=== PATIENT | male | born 1965 | race Caucasian/White ===

== ENCOUNTER 2021-12-28 18:10 | Inpatient (IN) | payer MEDICARE, MEDICAID, SELFPAY ==
--- NOTE | ~2021-12-28 | XR_ITS ---
EXAMINATION: XR FOOT, RIGHT CLINICAL INFORMATION: Deep ulceration COMPARISON: None TECHNIQUE: AP, lateral, and oblique views of the right foot. FINDINGS: Degenerative changes are present in the foot predominantly involving the interphalangeal joints and the first metatarsal phalangeal joint. Some sclerotic changes are seen in the navicular. No bony destructive lesions are seen. Some soft tissue swelling is seen on the dorsum of the foot overlying the metatarsals. XR/XR foot RT 2V IMPRESSION: No evidence of osteomyelitis. MRI would have increased sensitivity.
--- NOTE | 2021-12-28 18:23 | ED.WOUNDLAC ---
HPI - Wound/Laceration General Chief Complaint: Extremity Injury, Lower Stated Complaint: L FOOT PAIN,? INFECTION PER EMS Time Seen by Provider: 12/28/21 18:22 Source: patient Mode of arrival: ambulatory Limitations: no limitations History of Present Illness HPI narrative: Patient's history of CVA with right sided weakness borderline diabetic and nonhealing ulcers since 08/09 on the lateral aspect of the right foot lately for last few days it has been getting worse with increased pain and the purulent discharge no fever no chills Related Data Allergies Allergy/AdvReac Type Severity Reaction Status Date / Time No Known Allergies Allergy Verified 12/28/21 18:23 Review of Systems Review of Systems: Yes all other systems are reviewed and are negative [facility] Past Medical History Medical History (Updated 12/28/21 @ 22:33 by Randy Torres MD) CVA (cerebral vascular accident) Hypertension Pre-diabetes Right hemiparesis Surgical History (Updated 12/28/21 @ 21:46 by Kanchan Moore MD) History of left-sided carotid endarterectomy Family History Family History (Updated 12/28/21 @ 21:46 by Kanchan Moore MD) Father Colon cancer Social History Social History (Updated 12/28/21 @ 21:47 by Kanchan Moore MD) Alcohol intake: current Patient Tobacco Use Status: Current someday Tobacco user Tobacco use type: Cigarette Use of substances other than those prescribed or required for medical reasons: No Advance Directives: No Advance Directives Information Provided: Yes Physical Exam Vital Signs: Vital Signs: Last Vital Signs Temp 98.5 F 12/28/21 18:42 Pulse 81 12/28/21 18:42 Resp 20 12/28/21 18:42 BP 169/81 H 12/28/21 18:42 Pulse Ox 97 12/28/21 18:42 O2 Del Method 12/28/21 18:42 BMI result Body Mass Index 34.7 Appearance: Alert. Oriented X3. No acute distress. Eyes: PERRLA, No Nystagmus ENT: Pharynx normal. Oral Mucosa moist Neck: Normal inspection. Neck supple. CVS: Normal heart rate and rhythm. Pulses normal. Respiratory: No respiratory distress. Equal air entry bilateral, no wheezing/rales/rhonchi Abdomen: Soft and nontender. Bowel sounds are present, no mass palpable, no CVA tenderness Skin: Skin warm and dry. Normal skin color. Normal skin turgor. Extremities: No lower extremity edema. No calf tenderness right foot lateral aspect 3 x 3 cm ulcer with purulent base with surrounding erythema Neuro: Oriented X 3. Right residual hemiparesis Extrem: Other: MDM - Wound/Laceration MDM Narrative Medical decision making narrative: Patient with nonhealing ulcer right foot without involvement of the bone per x-ray slightly elevated WBC count with normal sed rate, also had LENY patient is unaware of, will admit patient for IV antibiotics unlikely patient has osteomyelitis at this time Lab Data Attestation: I reviewed the patient's lab results. Result diagrams: 12/28/21 18:59 12/28/21 18:59 Labs: Lab Results 12/28/21 12/28/21 12/28/21 Range/Units 18:59 18:59 18:59 WBC 12.2 H (4.8-10.8) X10*3/uL RBC 4.62 (4.60-5.80) X10*6/uL Hgb 13.7 L (14.0-18.0) g/dl Hct 42.2 (42.0-52.0) % MCV 91.3 (80.0-98.0) fL MCH 29.7 (27.0-33.0) pg MCHC 32.5 (31.0-36.0) g/dl RDW 13.5 (11.0-16.0) % Plt Count 236 (160-400) X10*3/uL MPV 9.5 (9.4-12.4) fL Immature Gran % (Auto) 0.4 (0.0-0.4) % Neut % (Auto) 61.6 (45-73) % Lymph % (Auto) 28.9 (20-40) % [place] % (Auto) 4.6 (2-11) % Eos % (Auto) 3.8 (0-4) % Baso % (Auto) 0.7 (0-2) % Lymph # (Auto) 3.5 (1.2-4.9) X10*3/uL [place] # (Auto) 0.6 (0.1-1.2) X10*3/uL Eos # (Auto) 0.5 H (0.0-0.4) X10*3/uL Baso # (Auto) 0.1 (0.0-0.2) X10*3/uL Abs Immat Gran (auto) 0.05 H (0.00-0.03) X10*3/uL Absolute Neuts (auto) 7.6 (2.0-8.3) x10*3/uL Absolute Nucleated RBC 0.000 (0.0-0.012) X10*3/uL Nucleated RBC % (auto) 0.0 (0.0-0.2) /100WBC ESR (0-15) MM/HR Sodium 137 (135-145) mmol/L Potassium 4.4 (3.3-5.1) mmol/L Chloride 103 (96-108) mmol/L Carbon Dioxide 23 (22-29) mmol/L Anion Gap 15 (12-20) BUN 24 H (9-16) mg/dL Creatinine 1.69 H (0.5-1.4) mg/dL Estim Creat Clear Calc 65.3 Estimated GFR 42 Random Glucose 114 (60-115) mg/dL Lactic Acid 1.4 (0.5-2.0) mmol/L Calcium 9.5 (8.4-10.2) mg/dL Total Bilirubin 0.4 (0.0-1.0) mg/dL AST 21 (5-37) U/L ALT 19 (0-40) U/L Alkaline Phosphatase 57 (39-117) U/L C-Reactive Protein 1.26 H (< or = 0.50) mg/dL Total Protein 8.2 H (6.5-8.0) g/dL Albumin 4.5 (3.5-5.0) g/dL 12/28/21 Range/Units 18:59 WBC (4.8-10.8) X10*3/uL RBC (4.60-5.80) X10*6/uL Hgb (14.0-18.0) g/dl Hct (42.0-52.0) % MCV (80.0-98.0) fL MCH (27.0-33.0) pg MCHC (31.0-36.0) g/dl RDW (11.0-16.0) % Plt Count (160-400) X10*3/uL MPV (9.4-12.4) fL Immature Gran % (Auto) (0.0-0.4) % Neut % (Auto) (45-73) % Lymph % (Auto) (20-40) % [place] % (Auto) (2-11) % Eos % (Auto) (0-4) % Baso % (Auto) (0-2) % Lymph # (Auto) (1.2-4.9) X10*3/uL [place] # (Auto) (0.1-1.2) X10*3/uL Eos # (Auto) (0.0-0.4) X10*3/uL Baso # (Auto) (0.0-0.2) X10*3/uL Abs Immat Gran (auto) (0.00-0.03) X10*3/uL Absolute Neuts (auto) (2.0-8.3) x10*3/uL Absolute Nucleated RBC (0.0-0.012) X10*3/uL Nucleated RBC % (auto) (0.0-0.2) /100WBC ESR 19 H (0-15) MM/HR Sodium (135-145) mmol/L Potassium (3.3-5.1) mmol/L Chloride (96-108) mmol/L Carbon Dioxide (22-29) mmol/L Anion Gap (12-20) BUN (9-16) mg/dL Creatinine (0.5-1.4) mg/dL Estim Creat Clear Calc Estimated GFR Random Glucose (60-115) mg/dL Lactic Acid (0.5-2.0) mmol/L Calcium (8.4-10.2) mg/dL Total Bilirubin (0.0-1.0) mg/dL AST (5-37) U/L ALT (0-40) U/L Alkaline Phosphatase (39-117) U/L C-Reactive Protein (< or = 0.50) mg/dL Total Protein (6.5-8.0) g/dL Albumin (3.5-5.0) g/dL Discharge Plan Discharge Clinical Impression: Non-healing ulcer, LENY (acute kidney injury) Patient Disposition: Admitted As Inpatient
[2021-12-28 18:42] VITALS: BP 169/81; BP 180/100; PULSE 81; PULSE 87; RESP 20; TEMP 36.9; O2SAT 97; O2SAT 98; BMI 34.7
[2021-12-28 19:06] LABS: MANUAL DIFF FLAG NO
[2021-12-28 19:15] LABS: Basophils Absolute Auto 0.1 X10*3/uL (0.0-0.2); Basophils Percent Auto 0.7 % (0-2); Eosinophils Absolute Auto 0.5 X10*3/uL (0.0-0.4); Eosinophils Percent Auto 3.8 % (0-4); Hematocrit 42.2 % (42.0-52.0); Hemoglobin 13.7 g/dl (14.0-18.0); Imm Gran Abs Auto 0.05 X10*3/uL (0.00-0.03); Imm Gran Pct Auto 0.4 % (0.0-0.4); Lymphocytes Absolute Auto 3.5 X10*3/uL (1.2-4.9); Lymphocytes Percent Auto 28.9 % (20-40); Mean Corpuscular HGB Conc 32.5 g/dl (31.0-36.0); Mean Corpuscular Hemoglobin 29.7 pg (27.0-33.0); Mean Corpuscular Volume 91.3 fL (80.0-98.0); Mean Platelet Volume 9.5 fL (9.4-12.4); Monocytes Absolute Auto 0.6 X10*3/uL (0.1-1.2); Monocytes Percent Auto 4.6 % (2-11); Neutrophils Absolute Auto 7.6 x10*3/uL (2.0-8.3); Neutrophils Percent Auto 61.6 % (45-73); Platelet Count 236 X10*3/uL (160-400); Red Blood Count 4.62 X10*6/uL (4.60-5.80); Red Cell Distribution Width 13.5 % (11.0-16.0); White Blood Count 12.2 X10*3/uL (4.8-10.8)
[2021-12-28 19:17] LABS: Lactic Acid 1.4 mmol/L (0.5-2.0)
[2021-12-28 19:37] LABS: Alanine Aminotransferase 19 U/L (0-40); Albumin Level 4.5 g/dL (3.5-5.0); Alkaline Phosphatase 57 U/L (39-117); Anion Gap 15 (12-20); Aspartate Amino Transferase 21 U/L (5-37); Bilirubin Total 0.4 mg/dL (0.0-1.0); Blood Urea Nitrogen 24 mg/dL (9-16); Calcium 9.5 mg/dL (8.4-10.2); Carbon Dioxide 23 mmol/L (22-29); Chloride 103 mmol/L (96-108); Creatinine Clr Calc Pharmacy 65.3; Estimated Glomerular Filt Rate 42; Glucose Random 114 mg/dL (60-115); Potassium 4.4 mmol/L (3.3-5.1); Sodium 137 mmol/L (135-145); Total Protein 8.2 g/dL (6.5-8.0)
[2021-12-28] MEDS: Piperacillin Sodium/Tazobactam 3.375 GM in 0.9 % Sodium Chloride 50 ML IV (19:42)
[2021-12-28] MEDS: Morphine Sulfate 4 MG/ML CARTRIDGE IVPUSH (20:04)
[2021-12-28] MEDS: ondansetron HCL 4 MG/2 ML VIAL IVPUSH (20:04)
[2021-12-28 20:13] LABS: Erythrocyte Sedimentation Rate 19 MM/HR (0-15)
[2021-12-28] MEDS: 0.9 % Sodium Chloride 1,000 ML 999 ML IV (20:14)
--- NOTE | 2021-12-28 21:34 | PM.IMHP ---
History of Present Illness Date of Service: 12/28/21 Chief Complaint: non-healing painful ulcer This is a 56-year-old male with past medical history of prediabetes, CVA with right sided hemiparesis, hypertension who presents to the hospital with complaints of nonhealing ulcer on the lateral aspect of right foot. Patient reports that he has had this wound develope since July and he follows with Podiatry as well as wound clinic, last seen 2 weeks ago, he reports that over the last 2 weeks he has had increasing pain that has now become unbearable, describes it as constant 10/10 shooting pain radiating up to his foot, not associated with any fever or chills, no alleviating factors. Reports some drainage, and always has bloody discharge on the gauze whenever he removes it. Patient denies any fever, no chills, he has no headache or change in vision, no chest pain or shortness of breath, no abdominal pain nausea or vomiting, no diarrhea constipation, no urinary symptoms and no other abnormal lower extremity findings or edema. On arrival to the ED patient hemodynamically stable with an elevated blood pressure 169/81 otherwise vitals normal Labs are significant for WBC count of 12.2, hemoglobin of 13.7, hematocrit 42.2, ESR of 19, creatinine of 1.69 with no previous for comparison, X-ray of the right foot shows no osteomyelitis Review of Systems Review of Systems: Yes all other systems are reviewed and are negative [facility] Medical History (Updated 12/28/21 @ 21:46 by Kanchan Moore MD) CVA (cerebral vascular accident) Hypertension Pre-diabetes Right hemiparesis Family History (Updated 12/28/21 @ 21:46 by Kanchan Moore MD) Father Colon cancer Surgical History (Updated 12/28/21 @ 21:46 by Kanchan Moore MD) History of left-sided carotid endarterectomy Social History (Updated 12/28/21 @ 21:47 by Kanchan Moore MD) Alcohol intake: current Patient Tobacco Use Status: Current someday Tobacco user Tobacco use type: Cigarette Use of substances other than those prescribed or required for medical reasons: No Advance Directives: No Advance Directives Information Provided: Yes Meds Allergies Allergy/AdvReac Type Severity Reaction Status Date / Time No Known Allergies Allergy Verified 12/28/21 18:23 Physical Exam Vital Signs and Narrative: Vital Signs: Last Vital Signs Temp 98.5 F 12/28/21 18:42 Pulse 81 12/28/21 18:42 Resp 20 12/28/21 18:42 BP 169/81 H 12/28/21 18:42 Pulse Ox 97 12/28/21 18:42 O2 Del Method 12/28/21 18:42 BMI result Body Mass Index 34.7 Const: General: cooperative and no acute distress Orientation/consciousness: patient oriented x3 Eyes: General: appearance normal, both eyes and all related structures Resp: Effort & Inspection: normal respiratory effort Auscultation: clear to auscultation bilaterally Cardio: Rate: regular rate Rhythm: regular rhythm GI: Palpation (GI): Soft to palpation Auscultation: normal bowel sounds Skin: General skin exam: no rashes or lesions noted Neuro: Other: right sided hemiparesis no difficulty in speech General: patient oriented x3 Cognition (Neuro): normal cognition Extrem: Other: Right lateral foot wound , with putulent discharge, and erythmatous base , warmth, tender to touch Results Labs CBC and Chem 7: 12/28/21 18:59 12/28/21 18:59 Labs: Laboratory Results - last 24 hr 12/28/21 12/28/21 12/28/21 18:59 18:59 18:59 MCV 91.3 MCH 29.7 MCHC 32.5 RDW 13.5 Plt Count 236 MPV 9.5 Immature Gran % (Auto) 0.4 Neut % (Auto) 61.6 Lymph % (Auto) 28.9 [place] % (Auto) 4.6 Eos % (Auto) 3.8 Baso % (Auto) 0.7 Lymph # (Auto) 3.5 [place] # (Auto) 0.6 Eos # (Auto) 0.5 H Baso # (Auto) 0.1 Abs Immat Gran (auto) 0.05 H Absolute Neuts (auto) 7.6 Absolute Nucleated RBC 0.000 Nucleated RBC % (auto) 0.0 ESR Anion Gap 15 Estim Creat Clear Calc 65.3 Estimated GFR 42 Random Glucose 114 Lactic Acid 1.4 Calcium 9.5 Total Bilirubin 0.4 AST 21 ALT 19 Alkaline Phosphatase 57 Total Protein 8.2 H Albumin 4.5 12/28/21 18:59 MCV MCH MCHC RDW Plt Count MPV Immature Gran % (Auto) Neut % (Auto) Lymph % (Auto) [place] % (Auto) Eos % (Auto) Baso % (Auto) Lymph # (Auto) [place] # (Auto) Eos # (Auto) Baso # (Auto) Abs Immat Gran (auto) Absolute Neuts (auto) Absolute Nucleated RBC Nucleated RBC % (auto) ESR 19 H Anion Gap Estim Creat Clear Calc Estimated GFR Random Glucose Lactic Acid Calcium Total Bilirubin AST ALT Alkaline Phosphatase Total Protein Albumin Imaging Radiologist's Impressions: Impressions Foot X-Ray 12/28/21 19:15 IMPRESSION: No evidence of osteomyelitis. MRI would have increased sensitivity. Assessment and Plan (1) LITTLE (acute kidney injury): Status: Acute (2) Non-healing ulcer: Status: Acute Plan 56 yo w history of pre-diabetes and right hemiparesis post CVA presents w non- healing ulcer of right foot #non-healing right foot ulcer - has leuckocytosis and elevated ESR - Negative xray for acute osteo - Ulcer appears infected - will tx with IV abx , follow cultures, Gen surg consulted for debridement - I do not suscpect osteomyelitis but if CRP is also elevated, consider MRI to rule out # Little - no previous cr level for comparison - will tx with iv fluids - follow bmp # Pre-diabetes - not on meds - will place on diabetic diet # CVA - no new weakness - continue home meds DVT pps: SCDs in anticipation of possible surgical intevention Given need for IV abx pt will require a min 2 night hospital stay for further management and evaluation Quality Stroke Does the patient have a stroke diagnosis?: No VTE Prior VTE?: No VTE Risk Level:: Medical - moderate - high VTE Device Contraindication: N/A - Device Ordered VTE Drug Contraindication: Treatment Not Indicated
[2021-12-28 21:45] LABS: C Reactive Protein 1.26 mg/dL (< or = 0.50)
--- NOTE | 2021-12-28 21:51 | PM.CNGS ---
History of Present Illness Consult details Consult date: 12/29/21 Narrative: 56 y male with RIGHT foot ulcer & past medical history of prediabetes, CVA with right sided hemiparesis, hypertension who presents to the hospital with complaints of nonhealing ulcer on the lateral aspect of right foot.? Patient reports that he has had this wound develope since July and he follows with Podiatry as well as wound clinic, last seen 2 weeks ago, he reports that over the last 2 weeks he has had increasing pain that has now become unbearable, describes it as constant 10/10 shooting pain radiating up to his foot, not associated with any fever or chills, no alleviating factors. 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 Review of Systems Review of Systems: Yes all other systems are reviewed and are negative Constitutional: Constitutional: Reports as per [facility] Past Medical History Medical History CVA (cerebral vascular accident) Hypertension Pre-diabetes Right hemiparesis Family History Family History Father Colon cancer Surgical History Surgical History History of left-sided carotid endarterectomy Social History Social History Alcohol intake: never Patient Tobacco Use Status: Current someday Tobacco user Tobacco use type: Cigarette Smoked in Last 30 Days: Yes Use of substances other than those prescribed or required for medical reasons: No Advance Directives: No Advance Directives Information Provided: Yes Meds Allergies Allergy/AdvReac Type Severity Reaction Status Date / Time No Known Allergies Allergy Verified 12/28/21 18:23 Active Medications: Current Medications Acetaminophen (Acetaminophen 325 Mg Tablet) 650 mg PO Q6H PRN PRN Reason: Pain, Mild (Pain Scale 1-3) Docusate Sodium (Docusate Sodium 100 Mg Capsule) 100 mg PO DAILY PRN PRN Reason: Constipation Vancomycin HCl 1,500 mg/ (Sodium Chloride) 500 mls @ 333.333 mls/hr IV Q12H MICHAEL Ondansetron HCl (Ondansetron Hcl 4 Mg/2 Ml Vial) 4 mg IVPUSH Q8H PRN PRN Reason: Nausea and Vomiting Oxycodone HCl (Oxycodone Hcl Immed Release 5 Mg Tablet) 5 mg PO Q6H PRN PRN Reason: Pain, Severe (Pain Scale 7-10) Pharmacy Consult (Consult Rx Vancomycin Dosing) 1 each MISCELLANE DAILY PRN PRN Reason: Consult order Pharmacy Consult (Consult Rx Perform Med Rec) 1 each MISCELLANE ONCE PRN PRN Reason: Consult order Sodium Chloride (0.9 % Sodium Chloride Flush 3 Ml Syringe) 3 ml IVFLUSH [facility] Medications Medication Instructions Recorded Confirmed Last Taken Type atorvastatin 40 mg tablet 1 tab PO DAILY 12/29/21 12/29/21 Unknown History azelastine 137 mcg (0.1 %) nasal 2 spray intranasal BID 12/29/21 12/29/21 Unknown History spray aerosol baclofen 10 mg tablet 1.5 tab PO QID 12/29/21 12/29/21 Unknown History chlorthalidone 25 mg tablet 1 tab PO BID 12/29/21 12/29/21 Unknown History clopidogrel 75 mg tablet 1 tab PO DAILY 12/29/21 12/29/21 Unknown History doxycycline hyclate 100 mg capsule 1 cap PO BID 12/29/21 12/29/21 Unknown History dulaglutide 1.5 mg/0.5 mL 1.5 mg subcut QWEEK 12/29/21 12/29/21 Unknown History subcutaneous pen injector (Trulicity) escitalopram oxalate 20 mg tablet 1 tab PO DAILY 12/29/21 12/29/21 Unknown History fenofibrate micronized 200 mg 1 cap PO QAM 12/29/21 12/29/21 Unknown History capsule gabapentin 100 mg capsule 2 cap PO BID 12/29/21 12/29/21 Unknown History glipizide 5 mg tablet, extended 1 tab PO BID 12/29/21 12/29/21 Unknown History release 24 hr lidocaine 5 % topical patch 1 patch topical DAILY 12/29/21 12/29/21 Unknown History lisinopril 40 mg tablet 1 tab PO DAILY 12/29/21 12/29/21 Unknown History metoprolol succinate 50 mg 1 tab PO DAILY 12/29/21 12/29/21 Unknown History tablet,extended release 24 hr pantoprazole 40 mg tablet,delayed 1 tab PO DAILY 12/29/21 12/29/21 Unknown History release Physical Exam Vital Signs: Vital Signs: Last Vital Signs Temp 98.5 F 12/28/21 18:42 Pulse 81 12/28/21 18:42 Resp 20 12/28/21 18:42 BP 169/81 H 12/28/21 18:42 Pulse Ox 97 12/28/21 18:42 O2 Del Method 12/28/21 18:42 BMI result Body Mass Index 34.7 The patient is nontoxic and is in surprisingly good spirits Abdomen is obese and nontender Right foot has a clean, new dressing in place. Results Labs Result diagrams: 12/29/21 06:00 12/29/21 06:00 Labs: Abnormal lab results 12/28/21 12/28/21 12/28/21 Range/Units 18:59 18:59 18:59 WBC 12.2 H (4.8-10.8) X10*3/uL Hgb 13.7 L (14.0-18.0) g/dl Eos # (Auto) 0.5 H (0.0-0.4) X10*3/uL Abs Immat Gran (auto) 0.05 H (0.00-0.03) X10*3/uL ESR 19 H (0-15) MM/HR BUN 24 H (9-16) mg/dL Creatinine 1.69 H (0.5-1.4) mg/dL C-Reactive Protein 1.26 H (< or = 0.50) mg/dL Total Protein 8.2 H (6.5-8.0) g/dL Short CBC 12/28/21 Range/Units 18:59 WBC 12.2 H (4.8-10.8) X10*3/uL Hgb 13.7 L (14.0-18.0) g/dl Hct 42.2 (42.0-52.0) % Plt Count 236 (160-400) X10*3/uL BMP 12/28/21 18:59 Sodium 137 Potassium 4.4 Chloride 103 Carbon Dioxide 23 BUN 24 H Creatinine 1.69 H Calcium 9.5 Liver Function 12/28/21 Range/Units 18:59 Total Bilirubin 0.4 (0.0-1.0) mg/dL AST 21 (5-37) U/L ALT 19 (0-40) U/L Alkaline Phosphatase 57 (39-117) U/L Albumin 4.5 (3.5-5.0) g/dL All other labs normal. Imaging Additional studies: Foot X-ray report reviewed; no evidence of osteo, MRI recommended Assessment and Plan (1) Non-healing ulcer: Status: Acute (2) LENY (acute kidney injury): Status: Acute Plan IV Abx for now. Consider MRI Patient notes interest in continuing to follow-up with [facility], however if he is unable to be discharged with follow-up with them, will discuss with other general surgeons. Procedures Date of Service Date of Service: 12/29/21
[2021-12-28] MEDS: oxyCODONE HCl Immed Release 5 MG TABLET PO (22:22)
[2021-12-28] MEDS: Lactated Ringers 1,000 ML 100 ML IVCONT (22:24)
[2021-12-28 22:41] LABS: COVID-19 Test Negative (Negative)
[2021-12-28] MEDS: cefEPime HCl 1 GM in 0.9 % Sodium Chloride 50 ML IV (23:16)
[2021-12-29] VITALS: BP 143/73; PULSE 88; RESP 16; TEMP 36.6; O2SAT 95
[2021-12-29] MEDS: HYDROmorphone HCl 0.5 MG/0.5 ML SYRINGE IVPUSH (00:03)
[2021-12-29] MEDS: Morphine Sulfate 4 MG/ML CARTRIDGE IVPUSH ×4 (02:36→15:57)
--- NOTE | 2021-12-29 05:50 | PC.NURSE ---
Cardizem at 5mg/hr was stopped for heart rate 80-90, still in Afib, this RN continues to monitor, call light in reach.
[2021-12-29 06:00] VITALS: BP 152/86; PULSE 90; RESP 16; TEMP 37; O2SAT 95
[2021-12-29 06:12] LABS: MANUAL DIFF FLAG NO
[2021-12-29 06:38] LABS: Anion Gap 15 (12-20); Blood Urea Nitrogen 20 mg/dL (9-16); Calcium 8.9 mg/dL (8.4-10.2); Carbon Dioxide 22 mmol/L (22-29); Chloride 108 mmol/L (96-108); Estimated Glomerular Filt Rate 49; Glucose Random 61 mg/dL (60-115); Potassium 4.5 mmol/L (3.3-5.1); Sodium 140 mmol/L (135-145)
[2021-12-29 07:04] LABS: Basophils Absolute Auto 0.1 X10*3/uL (0.0-0.2); Basophils Percent Auto 0.5 % (0-2); Eosinophils Absolute Auto 0.5 X10*3/uL (0.0-0.4); Eosinophils Percent Auto 3.8 % (0-4); Hematocrit 39.5 % (42.0-52.0); Imm Gran Pct Auto 0.8 % (0.0-0.4); Lymphocytes Absolute Auto 2.3 X10*3/uL (1.2-4.9); Lymphocytes Percent Auto 18.1 % (20-40); Mean Corpuscular HGB Conc 32.9 g/dl (31.0-36.0); Mean Corpuscular Hemoglobin 30.3 pg (27.0-33.0); Mean Corpuscular Volume 92.1 fL (80.0-98.0); Mean Platelet Volume 9.6 fL (9.4-12.4); Monocytes Absolute Auto 0.6 X10*3/uL (0.1-1.2); Monocytes Percent Auto 4.4 % (2-11); Neutrophils Absolute Auto 9.2 x10*3/uL (2.0-8.3); Neutrophils Percent Auto 72.4 % (45-73); Platelet Count 236 X10*3/uL (160-400); Red Blood Count 4.29 X10*6/uL (4.60-5.80); Red Cell Distribution Width 13.7 % (11.0-16.0); White Blood Count 12.8 X10*3/uL (4.8-10.8)
--- NOTE | 2021-12-29 07:53 | PHA.MEDREC ---
Pharmacy Consult ? Medication Reconciliation Pharmacy has completed the medication reconciliation.Checked med rec done by nursing overnight
[2021-12-29] MEDS: 0.9 % Sodium Chloride Flush 3 ML SYRINGE IVFLUSH (07:54)
[2021-12-29] MEDS: vancomycin HCL 750 MG in 0.9 % Sodium Chloride 250 ML 265 MG IV (07:55)
[2021-12-29 07:59] VITALS: BP 140/84; PULSE 91; RESP 20; O2SAT 93
[2021-12-29] MEDS: Acetaminophen 325 MG TABLET 650 MG PO (08:56)
[2021-12-29] MEDS: Lactated Ringers 1,000 ML 100 ML IVCONT (10:41)
[2021-12-29] MEDS: cefEPime HCl 1 GM in 0.9 % Sodium Chloride 50 ML IV (11:03)
--- NOTE | 2021-12-29 13:07 | PHA.PROG ---
Admission Date/Time: December 28, 2021 21:28 Indication: Skin % soft tissue Weight in k.5 kg Serum Creatinine - Last 168 Hours 12/28/21 12/29/21 18:59 06:00 Creatinine 1.69 H 1.49 H Estimated CrCl and GFR - Last 168 Hours 12/28/21 12/29/21 18:59 06:00 Estim Creat Clear Calc 65.3 74.0 Estimated GFR 42 49 Vancomycin Loading Dose: 2000 Current Vancomycin Dosing Regimen: 750 q 12h Vancomycin Monitoring using AUC goal of 400 - 600 range with trough as surrogate marker: 407 Date and Time for next Vancomycin Level to be drawn: 12/30 @ 0600 Pharmacist Comments on Vancomycin Plan: Scr decreased from 1.69 to 1.49. Waiting to get level and then maybe will increase dose to [id number] Vancomycin dosing will take advantage of [employer] as a clinical decision support tool that uses Bayesian modeling to calculate individual patient's pharmacokinetic parameters and forecast the patient's drug concentration time course with the target goal AUC 24 range of 400 - 600 mg/L/hr.
--- NOTE | 2021-12-29 14:34 | HO.PM.IMPN ---
Subjective Subjective Date of Service: 12/29/21 Interval History: seen and examined this morning admitted overnight with nonhealing foot wound reports increasing pain, but denies fever, chills Does follow in the [facility] at [facility] Review of Systems Review of Systems: Yes all other systems are reviewed and are negative Constitutional Constitutional: Denies chills and Denies fever(s) ENT Ears, Nose, Mouth, and Throat: Denies dizziness Cardiovascular Cardiovascular: Denies chest pain, Denies palpitations and Denies dyspnea Respiratory Respiratory: Denies cough and Denies dyspnea Gastrointestinal Gastrointestinal: Denies abdominal pain, Denies nausea and Denies vomiting Neurologic Neurologic: Denies dizziness Endocrine Endocrine: Denies palpitations Physical Exam Vital Signs: Vital Signs: Last Vital Signs Temp 98.6 F 12/29/21 06:00 Pulse 91 12/29/21 07:59 Resp 20 12/29/21 07:59 BP 140/84 H 12/29/21 07:59 Pulse Ox 93 12/29/21 07:59 O2 Del Method 12/29/21 07:59 BMI result Body Mass Index 34.7 Const: General: cooperative, comfortable, alert and awake Nutritional Appearance: overweight Orientation/consciousness: patient oriented x3 Resp: Effort & Inspection: normal respiratory effort and able to speak in complete sentences Auscultation: diminished lung sounds Cardio: Rate: regular rate Heart sounds: S1 normal heart sound present and S2 normal heart sound present GI: Inspection: No distended Palpation (GI): Soft to palpation Skin: Other: lateral right foot ulcer with surrounding cellulitis; no fluctuance or induration Neuro: General: patient oriented x3 Extrem: Other: residual right sided weakness Objective Data Active Medications Acetaminophen (Acetaminophen 325 Mg Tablet) 650 mg PO Q6H PRN PRN Reason: Pain, Mild (Pain Scale 1-3) Last Admin: 12/29/21 08:56 Dose: 650 mg Documented By: NAV Docusate Sodium (Docusate Sodium 100 Mg Capsule) 100 mg PO DAILY PRN PRN Reason: Constipation Vancomycin HCl 750 mg/ Sodium (Chloride) 265 mls @ 265 mls/hr IV Q12H [facility] Last Infusion: 12/29/21 10:42 Dose: 0 mls/hr Documented By: JAMES Cefepime HCl 1 gm/ Sodium (Chloride) 50 mls @ 100 mls/hr IV Q12H [facility] Last Infusion: 12/29/21 12:08 Dose: 0 mls/hr Documented By: JAMES Morphine Sulfate (Morphine Sulfate 4 Mg/Ml Cartridge) 4 mg IVPUSH Q4H PRN; Protocol PRN Reason: Pain, Severe (Pain Scale 7-10) Last Admin: 12/29/21 10:54 Dose: 4 mg Documented By: JAMES Ondansetron HCl (Ondansetron Hcl 4 Mg/2 Ml Vial) 4 mg IVPUSH Q8H PRN PRN Reason: Nausea and Vomiting Oxycodone HCl (Oxycodone Hcl Immed Release 5 Mg Tablet) 5 mg PO Q6H PRN PRN Reason: Pain, Severe (Pain Scale 7-10) Last Admin: 12/28/21 22:22 Dose: 5 mg Documented By: NATHAN Pharmacy Consult (Consult Rx Vancomycin Dosing) 1 each MISCELLANE DAILY PRN PRN Reason: Consult order Pharmacy Consult (Consult Rx Perform Med Rec) 1 each MISCELLANE ONCE PRN PRN Reason: Consult order Sodium Chloride (0.9 % Sodium Chloride Flush 3 Ml Syringe) [facility] Last Admin: 12/29/21 07:54 Dose: 3 ml Documented By: NAV Labs CBC & Chem 7: 12/29/21 06:00 12/29/21 06:00 Labs: Laboratory Results - last 24 hr 12/28/21 12/28/21 12/28/21 18:59 18:59 18:59 MCV 91.3 MCH 29.7 MCHC 32.5 RDW 13.5 Plt Count 236 MPV 9.5 Immature Gran % (Auto) 0.4 Neut % (Auto) 61.6 Lymph % (Auto) 28.9 [place] % (Auto) 4.6 Eos % (Auto) 3.8 Baso % (Auto) 0.7 Lymph # (Auto) 3.5 [place] # (Auto) 0.6 Eos # (Auto) 0.5 H Baso # (Auto) 0.1 Abs Immat Gran (auto) 0.05 H Absolute Neuts (auto) 7.6 Absolute Nucleated RBC 0.000 Nucleated RBC % (auto) 0.0 ESR Anion Gap 15 Estim Creat Clear Calc 65.3 Estimated GFR 42 Random Glucose 114 Lactic Acid 1.4 Calcium 9.5 Total Bilirubin 0.4 AST 21 ALT 19 Alkaline Phosphatase 57 C-Reactive Protein 1.26 H Total Protein 8.2 H Albumin 4.5 COVID-19 ([facility]) COVID-19 Clin Com 12/28/21 12/28/21 12/29/21 18:59 20:22 06:00 MCV 92.1 MCH 30.3 MCHC 32.9 RDW 13.7 Plt Count 236 MPV 9.6 Immature Gran % (Auto) 0.8 H Neut % (Auto) 72.4 Lymph % (Auto) 18.1 L [place] % (Auto) 4.4 Eos % (Auto) 3.8 Baso % (Auto) 0.5 Lymph # (Auto) 2.3 [place] # (Auto) 0.6 Eos # (Auto) 0.5 H Baso # (Auto) 0.1 Abs Immat Gran (auto) 0.10 H Absolute Neuts (auto) 9.2 H Absolute Nucleated RBC 0.000 Nucleated RBC % (auto) 0.0 ESR 19 H Anion Gap Estim Creat Clear Calc Estimated GFR Random Glucose Lactic Acid Calcium Total Bilirubin AST ALT Alkaline Phosphatase C-Reactive Protein Total Protein Albumin COVID-19 ([facility]) Negative COVID-19 Clin Com See Note 12/29/21 06:00 MCV MCH MCHC RDW Plt Count MPV Immature Gran % (Auto) Neut % (Auto) Lymph % (Auto) [place] % (Auto) Eos % (Auto) Baso % (Auto) Lymph # (Auto) [place] # (Auto) Eos # (Auto) Baso # (Auto) Abs Immat Gran (auto) Absolute Neuts (auto) Absolute Nucleated RBC Nucleated RBC % (auto) ESR Anion Gap 15 Estim Creat Clear Calc 74.0 Estimated GFR 49 Random Glucose 61 D Lactic Acid Calcium 8.9 D Total Bilirubin AST ALT Alkaline Phosphatase C-Reactive Protein Total Protein Albumin COVID-19 ([facility]IO) COVID-19 Clin Com Assessment and Plan (1) Non-healing ulcer: Status: Acute Plan 56 yo w history of pre-diabetes and right hemiparesis post CVA presents w non- healing ulcer of right foot Non-healing right foot ulcer with surrounding cellulitis r/t diabetes No evidence of sepsis X-ray shows no evidence of osteo denies being on outpatient abx, but doxy on med rec prescribed 7 day course on 12/26 -continue IV abx -Gen surg consulted for ?debridement -local wound care - can continue outpatient follow-up with [facility] after discharge Renal insufficiency No baseline but likely some component of LENY since creatinine has improved from 1.69 to 1.49 with IVF -hold lisinopril, chlorthlidone -follow renal function DM hold glipizide, trulicity is NF -continue ADA diet -SSI, POCs CVA residual right hemiparesis - continue statin, plavix HLD continue home meds DVT pps: SCDs Meets ongoing inpatient hospitalization for IV antibiotics and surgical consultation possible need for wound debridement Quality Stroke Does the patient have a stroke diagnosis?: No VTE Prior VTE?: No VTE Risk Level:: Medical - moderate - high VTE Device Contraindication: N/A - Device Ordered VTE Drug Contraindication: Treatment Not Indicated
--- NOTE | 2021-12-29 14:38 | MHC.CM.PN ---
Met with pt to discuss d/c planning needs: pt resides alone with a pet, does not drive, uses a cane or electric scooter and has services with [facility] for wound assessment/care. He states he also has PATIENT SAFETY COORDINATOR's that assist in care needs. Not vaccinated, declined HCP I have no one IMM in chart. Pt anxious to d/c will need chair van transport to home. Re referred to [facility]: CM to follow for changes in d/c plan.
[2021-12-29 16:00] VITALS: BP 126/66; PULSE 92; RESP 16; TEMP 36.8; O2SAT 98
[2021-12-29 16:18] LABS: Glucose, Whole Blood 129 mg/dL (60-115)
--- NOTE | 2021-12-29 16:49 | PC.NURSE ---
pt request to leave MD CJ notified, CJ work signed.
--- NOTE | 2023-02-13 16:07 | P.DS_ITS ---
DS: Providers Provider Date of Service: 12/29/21 Date of admission: 12/28/21 21:28 Date of discharge: 12/29/21 Primary care physician: Rebeca Lopez MD Consults: 12/28/21 21:32 Consult to General Surgery Routine Consulting Provider: Ronnie Rivera Reason for consultation: non-healing wound Has provider been notified: No [facility]: Jana Garcia DS: Diagnosis Discharge Diagnosis (1) Non-healing ulcer: Status: Acute DS: Summary Hospital Course Hospital Course: From H&P on the day of admission This is a 56-year-old male with past medical history of prediabetes, CVA with right sided hemiparesis, hypertension who presents to the hospital with complaints of nonhealing ulcer on the lateral aspect of right foot. Patient reports that he has had this wound develope since July and he follows with Podiatry as well as wound clinic, last seen 2 weeks ago, he reports that over the last 2 weeks he has had increasing pain that has now become unbearable, describes it as constant 10/10 shooting pain radiating up to his foot, not associated with any fever or chills, no alleviating factors. Reports some drainage, and always has bloody discharge on the gauze whenever he removes it. Patient denies any fever, no chills, he has no headache or change in vision, no chest pain or shortness of breath, no abdominal pain nausea or vomiting, no diarrhea constipation, no urinary symptoms and no other abnormal lower extremity findings or edema. On arrival to the ED patient hemodynamically stable with an elevated blood pressure 169/81 otherwise vitals normal Labs are significant for WBC count of 12.2, hemoglobin of 13.7, hematocrit 42.2, ESR of 19, creatinine of 1.69 with no previous for comparison, X-ray of the right foot shows no osteomyelitis 56 yo w history of pre-diabetes and right hemiparesis post CVA presents w non- healing ulcer of right foot #non-healing right foot ulcer - has leuckocytosis and elevated ESR - Negative xray for acute osteo - Ulcer appears infected - will tx with IV abx , follow cultures, Gen surg consulted for debridement Patient elected to leave against medical advice, he was awake alert and signed AMA paperwork prior to leaving. Physical exam was unchanged at the time of discharge from progress note written on the same day. Time Spent with Patient Time attestation: Total time managing care of this patient today ____ minutes. Discharge coordination time: Greater than 30 minutes Quality: Safe Use of Opioids Does Pt have an Active Cancer Diagnosis on the Problem List?: No Quality: Stroke Does the patient have a stroke diagnosis?: No Physical Exam Vital Signs: Vital Signs: Last Vital Signs Temp 98.2 F 12/29/21 16:00 Pulse 92 12/29/21 16:00 Resp 16 12/29/21 16:00 BP 126/66 12/29/21 16:00 Pulse Ox 98 12/29/21 16:00 O2 Del Method Room Air 12/29/21 16:00 BMI result Body Mass Index 34.7 Discharge Plan Discharge Patient Disposition: Left Against Medical Advice Discharge Diagnosis: nonhealing ulcer Discharge Medications: No Action atorvastatin 40 mg tablet 1 tab PO DAILY doxycycline hyclate 100 mg capsule 1 cap PO BID metoprolol succinate 50 mg tablet extended release 24 hr 1 tab PO DAILY glipizide 5 mg tablet extended release 24hr 1 tab PO BID clopidogrel 75 mg tablet 1 tab PO DAILY chlorthalidone 25 mg tablet 1 tab PO BID fenofibrate micronized 200 mg capsule 1 cap PO QAM baclofen 10 mg tablet 1.5 tab PO QID pantoprazole 40 mg tablet,delayed release (DR/EC) 1 tab PO DAILY lidocaine 5 % adhesive patch,medicated 1 patch topical DAILY gabapentin 100 mg capsule 2 cap PO BID azelastine 137 mcg (0.1 %) aerosol,spray 2 spray intranasal BID lisinopril 40 mg tablet 1 tab PO DAILY escitalopram oxalate 20 mg tablet 1 tab PO DAILY Trulicity 1.5 mg/0.5 mL pen injector 1.5 mg subcut QWEEK Discharge Orders: Discharge Order (Routine); Ordered 02/13/23 Ordered By: Jana Garcia Care Plan Goals: left ama Health Concerns: left ama Plan of Treatment: left ama Assessment: left ama Discharge Date/Time: 12/29/21 17:45
== END 2021-12-29 17:45 | disposition left against medical advice (07) | DRG 638 ==
LOC: HO.ED 18:51 → HO.EDOVER 22:05 → HO.S3 12-29 15:33 → HO.EDOVER 12-29 16:36
PROVIDERS: Admitting Provider Internal Medicine; Emergency Provider Internal Medicine; PCP Internal Medicine; Visit Provider Physician Assistant Medical
DX: E11.621 Type 2 diabetes mellitus with foot ulcer (principal); I69.351 Hemiplegia and hemiparesis following cerebral infarction affecting right dominant side; L97.519 Non-pressure chronic ulcer of other part of right foot with unspecified severity; N17.9 Acute kidney failure, unspecified; E78.5 Hyperlipidemia, unspecified; F17.210 Nicotine dependence, cigarettes, uncomplicated; I10 Essential (primary) hypertension; Z20.822 Contact with and (suspected) exposure to COVID-19; Z71.6 Tobacco abuse counseling; Z79.02 Long term (current) use of antithrombotics/antiplatelets; Z79.84 Long term (current) use of oral hypoglycemic drugs; Z79.899 Other long term (current) drug therapy
CPT/HCPCS: 36415; 73620; 80048; 80053; 82947; 83605; 85025; 85652; 86140; 87040; 87635; 96365; 96366; 96375; 96376; 99285; J0692; J1170; J2270; J2405; J2543; J3370